=== PATIENT | female | born 1970 | race Caucasian/White ===

== ENCOUNTER 2016-07-19 09:40 | Emergency (ER) | payer SELFPAY ==
[~2016-07-19] VITALS: Ht 162.6 cm; Wt 64.0 kg
[2016-07-19 09:43] VITALS: Ht 162.6 cm; Wt 64.0 kg
[2016-07-19] MEDS ORDERED: ONDANSETRON 4 MG INJ IV STA (10:28)
[2016-07-19] MEDS ORDERED: KETOROLAC 30 MG INJ IV STA (10:28)
--- NOTE | 2016-07-19 12:01 | RADRPT ---
PROCEDURE: US Abdomen. CLINICAL INDICATION: abdominal pain , nausea and vomiting TECHNIQUE: Multiple real-time images were acquired of the patient's right upper quadrant abdomen a nd retroperitoneum utilizing a high resolution transducer. COMPARISON: None FINDINGS: The liver demonstrates normal echogenicity. The liver is normal in size and no focal solid lesions are seen. The liver measures 15.8 cm in length. The portal vein is patent with normal direction of f low. No intrahepatic biliary dilatation is seen. The gallbladder is partially contracted and not well seen. No gallstones are identified within the gallbladder. There is no pericholecystic fluid or gallbladder wall thickening. The common bile duct measures 3 mm in maximal dimension. The visualized portions of the pancreas are unremarkable. The tail of the pancreas is not seen. No free fluid is identified. The right kidney is normal in size, and demonstrate normal echogenicity and cortical thickness. The right kidney measures 10.2 cm in long dimension. There is no evidence of hydronephrosis. There are no kidney stones. RPTAT: AA IMPRESSION: Contracted gallbladder with no evidence of gallstones. .Oswaldo Arce MD, MD Date Time Electronically viewed and signed by .Oswaldo Arce MD, MD on 07/19/2016 12:00 .S/
[2016-07-19 12:34] LABS: ADD SCAN DIFF NO
[2016-07-19 12:39] LABS: BASOPHIL # 0.1 10^3/ul (0.0-0.1); BASOPHILS % 0.5 % (0.0-2.0); EOSINOPHILS # 0.4 10^3/ul (0.0-0.5); HEMATOCRIT 43.9 % (37.0-47.0); HEMOGLOBIN 14.4 g/dl (12.0-16.0); LYMPHOCYTES # 2.5 10^3/ul (0.8-2.9); LYMPHOCYTES % 25.9 % (15.0-51.0); MEAN CORPUSCULAR HEMOGLOBIN 30.3 pg (29.0-33.0); MEAN CORPUSCULAR HGB CONC 32.8 g/dl (32.0-37.0); MEAN CORPUSCULAR VOLUME 92.2 fl (82.0-101.0); MEAN PLATELET VOLUME 9.7 fl (7.4-10.4); MONOCYTE # 0.8 10^3/ul (0.3-0.9); MONOCYTES % 7.9 % (0.0-11.0); NEUTROPHIL # 5.8 10^3/ul (1.6-7.5); NEUTROPHILS % 61.4 % (39.0-77.0); PLATELET COUNT 277 10^3/UL (140-415); RED BLOOD COUNT 4.76 10^6/ul (4.20-5.40); RED CELL DISTRIBUTION WIDTH 12.8 % (11.5-14.5); WHITE BLOOD COUNT 9.5 10^3/ul (4.8-10.8)
[2016-07-19 12:40] LABS: ADD UMIC NO; URINE BILIRUBIN (Dip) NEGATIVE (NEGATIVE); URINE BLOOD (Dip) NEGATIVE (NEGATIVE); URINE COLOR LT. YELLOW (YELLOW); URINE GLUCOSE (Dip) NEGATIVE (NEGATIVE); URINE KETONES (Dip) NEGATIVE (NEGATIVE); URINE LEUKOCYTE ESTERASE (Dip) NEGATIVE (NEGATIVE); URINE NITRITE (Dip) NEGATIVE (NEGATIVE); URINE TOTAL PROTEIN (Dip) NEGATIVE (NEGATIVE); URINE UROBILINOGEN (Dip) 0.2 E.U./dL (0.1-1.0)
[2016-07-19 12:58] LABS: ALBUMIN 4.8 g/dl (3.3-4.9)
[2016-07-19 12:59] LABS: POTASSIUM 3.5 mmol/L (3.5-5.1)
[2016-07-19 13:01] LABS: BILIRUBIN,INDIRECT 0.3 mg/dl (0-1.1); BILIRUBIN,TOTAL 0.3 mg/dl (0.2-1.3); CREATININE 0.64 mg/dl (0.44-1.00)
[2016-07-19 13:02] LABS: ALBUMIN/GLOBULIN RATIO 1.26; CALCIUM 9.5 mg/dl (8.4-10.2); TOTAL PROTEIN 8.6 g/dl (6.1-8.1)
--- NOTE | 2016-07-19 14:01 | RADRPT ---
PROCEDURE: Chest Radiograph. CLINICAL INDICATION: Abdominal pain TECHNIQUE: Single frontal chest radiograph. COMPARISON: None available FINDINGS: The cardiomediastinal silhouette is within normal limits. No infiltrate or effusion is seen. Th e bones are intact. IMPRESSION: 1. Unremarkable chest radiograph. RPTAT: KK .Laron Lira MD, MD Date Time Electronically viewed and signed by .Laron Lira MD, on 07/19/2016 14:00 .B/
[2016-07-19] MEDS ORDERED: ONDA8TAB14 PO (14:30)
[2016-07-19] MEDS ORDERED: FAMO-18 PO (14:30)
[2016-07-19] MEDS ORDERED: TRAM50TA2 PO (14:30)
--- NOTE | 2016-07-19 14:34 | ERD ---
ER Documentation Chief Complaint Date/Time DATE: 07/19/16 TIME: 14:32 Chief Complaint rt upper abd pain radiating to rt flank x 2 weeks with nausea HPI This 45-year-old female complains of right upper abdominal pain and some mild right flank pain intermittently for last 2 weeks associated with nausea. She denies any vomiting, fevers, urinary complaints, lower abdominal pain, cough, shortness breath or chest pain. ROS All systems reviewed and are negative except as per history of present illness. Medications Home Meds Active Scripts Famotidine* (Pepcid*) 20 Mg Tablet, 20 MG PO BID for 4 Days, #20 TAB Prov:ISABEL MOJICA MD 07/19/16 Ondansetron (Ondansetron Odt) 8 Mg Tab.rapdis, 8 MG PO Q6H Y for NAUSEA AND/OR VOMITING, #10 TAB Prov:ISABEL MOJICA MD 07/19/16 Tramadol HCl (Tramadol HCl) 50 Mg Tablet, 50 MG PO Q4 Y for PAIN, #20 TAB Prov:ISABEL MOJICA MD 07/19/16 Allergies Allergies: Coded Allergies: No Known Allergy (Unverified , 07/19/16) PMhx/Soc Medical and Surgical Hx: pt denies Surgical Hx History of Surgery: No Anesthesia Reaction: No Hx Neurological Disorder: No Hx Respiratory Disorders: Yes (ASTHMA) Hx Cardiac Disorders: No Hx Psychiatric Problems: No Hx Miscellaneous Medical Probl: No Hx Alcohol Use: No Hx Substance Use: No Hx Tobacco Use: No Smoking Status: Never smoker Physical Exam Vitals Vital Signs Date Time Temp Pulse Resp B/P Pulse Ox O2 Delivery O2 Flow Rate FiO2 07/19/16 09:43 99.1 90 16 134/63 98 Physical Exam Const: [], Zha-hle-fwjqorocn per Head: Atraumatic Eyes: Normal Conjunctiva ENT: Normal External Ears, Nose and Mouth. Neck: Full range of motion..~ No meningismus. Resp: Clear to auscultation bilaterally Cardio: Regular rate and rhythm, no murmurs Abd: Soft, mild tenderness in the right upper quadrant and right midabdomen. No rebound and no significant CVA tenderness. No tenderness at McBurney's point. non distended. Normal bowel sounds Skin: No petechiae or rashes Back: No midline or flank tenderness Ext: No cyanosis, or edema Neur: Awake and alert Psych: Normal Mood and Affect Result Diagram: 07/19/16 1220 07/19/16 1220 Results 24 hrs Laboratory Tests Test 07/19/16 12:20 White Blood Count 9.510^3/ul Red Blood Count 4.7610^6/ul Hemoglobin 14.4g/dl Hematocrit 43.9% Mean Corpuscular Volume 92.2fl Mean Corpuscular Hemoglobin 30.3pg Mean Corpuscular Hemoglobin Concent 32.8g/dl Red Cell Distribution Width 12.8% Platelet Count 18714^3/UL Mean Platelet Volume 9.7fl Neutrophils % 61.4% Lymphocytes % 25.9% Monocytes % 7.9% Eosinophils % 4.0% Basophils % 0.5% Nucleated Red Blood Cells % 0.0/100WBC Neutrophils # 5.810^3/ul Lymphocytes # 2.510^3/ul Monocytes # 0.810^3/ul Eosinophils # 0.410^3/ul Basophils # 0.110^3/ul Nucleated Red Blood Cells # 0.010^3/ul Urine Color LT. YELLOW Urine Clarity CLEAR Urine pH 7.0 Urine Specific [place] 1.015 Urine Ketones NEGATIVE Urine Nitrite NEGATIVE Urine Bilirubin NEGATIVE Urine Urobilinogen 0.2 E.U./dL Urine Leukocyte Esterase NEGATIVE Urine Hemoglobin NEGATIVE Urine Glucose NEGATIVE% Urine Total Protein NEGATIVE Sodium Level 143mmol/L Potassium Level 3.5mmol/L Chloride Level 100mmol/L Carbon Dioxide Level 30mmol/L Anion Gap 17 Blood Urea Nitrogen 11mg/dl Creatinine 0.64mg/dl Glucose Level 76mg/dl Calcium Level 9.5mg/dl Total Bilirubin 0.3mg/dl Direct Bilirubin 0.00mg/dl Indirect Bilirubin 0.3mg/dl Aspartate Amino Transf (AST/SGOT) 25IU/L Alanine Aminotransferase (ALT/SGPT) 35IU/L Alkaline Phosphatase 102IU/L Total Protein 8.6g/dl Albumin 4.8g/dl Globulin 3.80g/dl Albumin/Globulin Ratio 1.26 Lipase 91U/L Current Medications Medications (Trade) Dose Ordered Sig/Gerard Route PRN Reason Start Time Stop Time Status Last Admin Dose Admin Ondansetron HCl (Zofran Inj) 4 mg ONCE STAT IV 5/3/17 10:28 07/19/16 10:29 DC 07/19/16 12:13 Ketorolac Tromethamine (Toradol) 30 mg ONCE STAT IV 07/19/16 10:28 07/19/16 10:29 DC 07/19/16 12:13 Procedures/MDM CBC and CMP and lipase are normal. Urine is negative for infection, glucose, hemoglobin. HCG is negative. Right upper quadrant ultrasound shows no acute abnormalities according to radiologist and no gallstones. Chest X-ray 1V Interpreted by me: Soft Tissue: No acute abnormalities Bones: No acute abnormalities Mediastinum/Cardiac Silhouette/Lungs: [No acute abnormalities]. Impression have normal 1 view chest x-ray Patient presents with uncertain etiology of right upper quadrant abdominal pain intermittently for last 2 weeks. Patient as well as criteria does not suggest PE, there is no signs or symptoms to suggest pneumonia, acute coronary syndrome , hepatobiliary disease appendicitis, acute abdomen. She will be treated with tramadol and Pepcid and Zofran and instructions to follow-up with primary doctor this week. Patient additionally has complaints of bitemporal or frontal headache consistent with a tension headache. The patient was stable with no new complaints during the ER course. Clinically, there is no current evidence to suggest meningitis, sepsis, acute abdomen, pneumonia, acute coronary syndrome , pulmonary embolism, or any other emergent condition appearing to require further evaluation or hospitalization. The patient should certainly return for any new or worsening symptoms per the aftercare instructions. They should otherwise follow-up with her primary care doctor for reevaluation this week. Departure Diagnosis: Primary Impression: Headache Headache type: unspecified Headache chronicity pattern: unspecified pattern Intractability: not intractable Qualified Code: R51 - Nonintractable headache, unspecified chronicity pattern, unspecified headache type Additional Impression: Abdominal pain Abdominal location: right upper quadrant Qualified Code: R10.11 - Right upper quadrant abdominal pain Condition: Stable Patient Instructions: Abdominal Pain, Self-Care for Headaches Ref[facility]: [facility] Usted se de la rosa hecho un examen mdico de control que le indica que no est en alma delia condicin que requiera tratamiento urgente en el Departamento de Emergencia. Un estudio ms profundo y el tratamiento de neri condicin pueden esperar sin ningn riesgo hasta que usted sea atendida/o en el consultorio de neri mdico o alma delia cl grace. Es responsabilidad suya arreglar alma delia mariah para el seguimiento del alexander. MANEJO DE CONDICIONES NO URGENTES EN EL FUTURO 1) Si usted tiene un mdico de atencin primaria: Usted debera llamar a neri mdico de atencin primaria antes de venir al departamento de emergencia. Despus de las horas de consultorio, neri doctor o neri asociado/a est disponible por telfono. El mdico o enfermero de mercedes en el servicio telefnico puede asesorarle por riky medio para atender el problema, o alexander contrario se puede programar alma delia mariah. 2) Si usted no tiene un mdico de atencin primaria: Llame al mdico o clnica de referencia que aparece abajo jolie las horas de consultorio para hacer alma delia mariah para que le vean. CLINICAS: [facility] [phone] [facility] [phone] [facility] [facility] [phone] [facility] [facility] [phone] [facility] [place] [phone] [facility]. [phone] [address] Additional Instructions: Examines normal hoy. Cheque otro vez con neri doctor primario en el proximo bose or regresa para mas o nueva simptomas. ISABEL MOJICA MD July 19, 2016 14:34
== END 2016-07-19 14:45 | disposition home or self-care (01) ==
LOC: FTE 09:40
DX: R51 Headache (principal); J45.909 Unspecified asthma, uncomplicated; R11.0 Nausea
CPT/HCPCS: 36415; 71010; 76705; 80053; 81003; 83690; 85025; 96374; 96375; 99285; J1885; J2405